=== PATIENT | male | born 1945 | race Caucasian/White ===

== ENCOUNTER 2016-09-27 06:32 | Day surgery (SDC) | payer MEDICARE, OTHER ==
[2016-09-27] VITALS (11 sets, daily range): BP systolic 109–144; BP diastolic 67–91; PULSE 62–80; RESP 14–18; TEMP 97.1–97.6; O2SAT 91–98; Ht 185.4 cm; Wt 89.5 kg
[~2016-09-27] VITALS: Ht 185.4 cm; Wt 89.5 kg
[~2016-09-27 06:32] MED LIST: ASPI-730 PO; ATEN25TA PO; ATOR20TA59 PO; CARB1TAB42 PO; LISI-625 PO; METF10002 PO
[2016-09-27] MEDS ORDERED: LR 1,000 ML IV SCH (07:00)
[2016-09-27] MEDS ORDERED: LIDOCAINE 1% (10mg/ml) 2ml SDV INJ ONE (07:00)
[2016-09-27] MEDS ORDERED: FENTANYL 100mcg/2ml INJECTION IV PRN (07:19)
[2016-09-27] MEDS ORDERED: MIDAZOLAM 5mg/5ml INJECTION IV PRN (07:19)
[2016-09-27] MEDS ORDERED: CLINDAMYCIN 600mg IVPB 50 ML IV ONE (07:30)
[2016-09-27] MEDS ORDERED: MIDAZOLAM 2mg/2ml INJECTION ONE (07:32)
[2016-09-27] MEDS ORDERED: MIDAZOLAM 5mg/5ml INJECTION ONE (07:41)
[2016-09-27] MEDS ORDERED: FENTANYL 100mcg/2ml INJECTION ONE (07:41)
--- NOTE | 2016-09-27 13:15 | OPNOTEF ---
DATE OF PROCEDURE: 09/27/2016 PHYSICIAN: Dariusz Knox DO PROCEDURE: Colonoscopy. INDICATION FOR PROCEDURE Colorectal cancer screening. ASA CLASSIFICATION: 1 DESCRIPTION OF PROCEDURE Consent was signed and on the chart. Routine monitoring with ECG, continuous oximetry and noninvasive blood pressure was performed throughout the procedure and found to be within normal limits. IV sedation was performed with a total of 6 mg of Versed and 60 mcg of fentanyl. Prior to the procedure, the patient was brought to the endoscopy lab where a brief review of his medical history and physical exam was performed. The procedure was described to him and he was agreeable to continue. All questions were answered. He was given IV sedation and placed in left lateral decubitus position. A digital rectal exam revealed a normal size and contour prostate. No masses. The colonoscope was introduced through the anal verge and advanced to the cecum. Upon reaching the cecum careful inspection of the mucosa was performed. From the cecum through the ascending and transverse colon there were no polyps, masses, lesions or diverticula. He did have scattered diverticulosis of the descending and sigmoid colon. Otherwise normal. He tolerated the procedure well. There were no complications. IMPRESSION Diverticulosis of the descending and sigmoid colon; otherwise, normal. RECOMMENDATION Repeat as indicated. MTDD
== END 2016-09-27 09:00 | disposition home or self-care (01) ==
LOC: NSC 06:32
PROVIDERS: ATTEND Internal Medicine
DX: Z12.11 Encounter for screening for malignant neoplasm of colon (principal); K57.30 Diverticulosis of large intestine without perforation or abscess without bleeding; G20 Parkinson's disease; E11.65 Type 2 diabetes mellitus with hyperglycemia; I10 Essential (primary) hypertension; E78.5 Hyperlipidemia, unspecified; Z79.84 Long term (current) use of oral hypoglycemic drugs; Z79.899 Other long term (current) drug therapy
CPT/HCPCS: 82948; G0121; J2250